=== PATIENT | male | born 1980 | race Two or more races ===

== ENCOUNTER 2021-05-12 17:59 | Inpatient (IN) | payer OTHER ==
[~2021-05-12] VITALS: Ht 177.8 cm; Wt 90.7 kg
--- NOTE | 2021-05-12 18:13 | NUR ---
SE RECIBE PACIENTE ALERTA, ORIENTADA X 3 ESFERAS REFIERE DOLOR ABDOMINAL MAYOR EN LADO DERECHO QUE SE IRRADIA A PIERNA DERECHA DESDE LAWRENCE . SE UBICA EN AREA DE OBSERVACION.
--- NOTE | 2021-05-12 18:56 | NUR ---
MISSAEL REYES ORIENTA PTE SOBRE EL TRATAMIENTO ORDNADO POR EL DR DIAZ PTE ALERTA Y ORIENTADO POR 3 SE RELAIZAN MUESTRAS DE LABORATORIO Y SE ADMINISTRAN MEDICAMENTOS EGUN ORDENADO
[2021-05-14] MEDS ORDERED: PERCOCET 5-3251 EACH PO (15:12)
== END 2021-05-14 15:32 | disposition home or self-care (01) | DRG 343 ==
LOC: ER 17:59 → SURG 23:41
PROVIDERS: ADMIT Surgery; ATTEND Surgery
PROC: 0DTJ4ZZ Resection of Appendix, Percutaneous Endoscopic Approach (ICD-10-PCS; principal; 2021-05-13 07:00)
DX: K35.890 Other acute appendicitis without perforation or gangrene (principal)

== ENCOUNTER 2021-12-25 08:47 | Emergency (ER) | payer OTHER ==
[~2021-12-25] VITALS: Ht 172.7 cm; Wt 95.3 kg
[~2021-12-25 08:47] MED LIST: PERCOCET 5-3251 EACH PO
== END 2021-12-25 10:19 | disposition home or self-care (01) ==
LOC: ER 08:47
DX: M54.50 Low back pain, unspecified (principal); M62.838 Other muscle spasm

== ENCOUNTER 2022-04-30 07:11 | Emergency (ER) | payer OTHER ==
[~2022-04-30] VITALS: Ht 172.7 cm; Wt 95.3 kg
== END 2022-04-30 10:10 | disposition home or self-care (01) ==
LOC: ER 07:11
DX: U07.1 COVID-19 (principal)

== ENCOUNTER 2023-08-07 09:05 | Emergency (ER) | payer OTHER ==
[~2023-08-07] VITALS: Ht 172.7 cm; Wt 98.0 kg
[2023-08-07] MEDS ORDERED: LEVOFLOXACIN500 MG PO (11:14)
== END 2023-08-07 11:24 | disposition home or self-care (01) ==
LOC: ER 09:06
DX: R53.81 Other malaise (principal); T20.40XA Corrosion of unspecified degree of head, face, and neck, unspecified site, initial encounter

== ENCOUNTER 2025-04-15 08:33 | Emergency (ER) | payer OTHER ==
[~2025-04-15] VITALS: Ht 172.7 cm; Wt 100.7 kg
[~2025-04-15 08:33] MED LIST changes: +LEVOFLOXACIN500 MG PO
[2025-04-15] MEDS ORDERED: ORPHENADRINE CITRATE 30 MG/ML AMPUL IM ONE (09:15)
[2025-04-15] MEDS ORDERED: DEXAMETHASONE SODIUM PHOSPHATE 4 MG/ML VIAL IM ONE (09:15)
[2025-04-15] MEDS ORDERED: KETOROLAC TROMETHAMINE 60 MG VIAL IM ONE (09:15)
[2025-04-15] MEDS ORDERED: DICLOFENAC SODI75 MG PO (09:21)
[2025-04-15] MEDS ORDERED: BACLOFEN10 MG PO (09:21)
== END 2025-04-15 10:47 | disposition home or self-care (01) ==
LOC: ER 08:33
DX: M54.50 Low back pain, unspecified (principal)